=== PATIENT | female | born 1980 | race Caucasian/White ===

== ENCOUNTER 2018-01-11 08:26 | Inpatient (IN) | payer OTHER ==
[~2018-01-11] VITALS: Ht 165.1 cm; Wt 108.1 kg
[~2018-01-11 08:26] MED LIST: FENU610C PO; PRENCAP6 PO
[2018-01-11] MEDS ORDERED: PANT20TA2 PO (09:30)
[2018-01-11] MEDS ORDERED: CHLORHEXIDINE GLUCONATE 2 % 1 PACK (2 CLOTHS) TOPICAL PRN (09:30)
[2018-01-11] MEDS ORDERED: LACTATED RINGER'S 1000 ML IV PRN (09:30)
[2018-01-11] MEDS ORDERED: LISI10TA3 PO (09:30)
[2018-01-11] MEDS ORDERED: SODIUM CHLORID 0.9% 500 ML IV PRN (09:30)
[2018-01-11] MEDS ORDERED: POVIDONE IODINE 5% (ANTISEPSIS KIT) 4 APPLICATIONS EACH NARE PRN (09:30)
[2018-01-11] MEDS ORDERED: CETI10 (09:30)
[2018-01-11] MEDS ORDERED: METOPROLOL TARTRATE 25 MG TAB PO PRN (09:30)
[2018-01-11] MEDS ORDERED: metroNIDAZOLE 500 MG INJ 100 ML IV SCH (09:45)
[2018-01-11] MEDS ORDERED: ceFAZolin 2 GM PREMIX 50 ML IV SCH (09:45)
[2018-01-11] MEDS ORDERED: ONDANSETRON HCL 4 MG/2 ML VIAL IV PUSH SCH (09:45)
[2018-01-11] MEDS ORDERED: APREPITANT 40 MG CAP PO SCH (09:45)
[2018-01-11] MEDS ORDERED: ACETAMINOPHEN 1000 MG/100 ML 100 ML IV SCH (09:45)
[2018-01-11] MEDS ORDERED: DEXAMETHASONE SOD PHOS 4 MG/ML VIAL IV ONE (12:00)
[2018-01-11] MEDS ORDERED: ROCURONIUM INJ 50 MG/5 ML SYRINGE IV PUSH ONE (12:00)
[2018-01-11] MEDS ORDERED: NEOSTIGMINE 5 MG/5 ML SYRINGE IV PUSH ONE (12:00)
[2018-01-11] MEDS ORDERED: LACTATED RINGER'S 1000 ML INJ 1,000 ML IV ONE (12:00)
[2018-01-11] MEDS ORDERED: VECURONIUM BROMIDE 20 MG VIAL IV ONE (12:00)
[2018-01-11] MEDS ORDERED: GLYCOPYRROLATE 1 MG/5 ML SYRINGE IV PUSH ONE (12:00)
[2018-01-11] MEDS ORDERED: STERILE WATER FOR INJECTION 20 ML VIAL IV ONE (12:00)
[2018-01-11] MEDS ORDERED: LIDOCAINE HCL 1% PF 5 ML SYRINGE OTHER ONE (12:00)
[2018-01-11] MEDS ORDERED: ePHEDrine/NS 25 MG/5 ML SYRINGE IV ONE (12:00)
[2018-01-11] MEDS ORDERED: PROPOFOL 200 MG/20 ML AMP IV ONE (12:00)
[2018-01-11] MEDS ORDERED: ONDANSETRON HCL 4 MG/2 ML VIAL IV ONE (12:00)
[2018-01-11] MEDS ORDERED: BUPIVACAINE/EPINEPHRINE 0.25% PF 10 ML VIAL INFIL ONE (13:21)
[2018-01-11] MEDS: 1/2 NS + KCL 20 MEQ INJ 1,000 ML IV SCH ×2 (14:48→23:05)
[2018-01-11] MEDS ORDERED: Post-op Orders (for Pharmacy) OTHER ONE (14:50)
[2018-01-11] MEDS ORDERED: DO NOT ADM ANY ANTICOAGULANT DRUGS PRN (14:52)
[2018-01-11] MEDS ORDERED: MIDAZOLAM HCL 2 MG/2 ML VIAL ONE (14:56)
[2018-01-11] MEDS ORDERED: MORPHINE SULFATE 4 MG/ML INJ ONE (14:56)
[2018-01-11] MEDS ORDERED: ENALAPRILAT 1.25 MG/ML VIAL IV PUSH PRN (15:00)
[2018-01-11] MEDS ORDERED: MORPHINE SULFATE 30 MG/30 ML PCA IV SCH (15:00)
[2018-01-11] MEDS ORDERED: ACETAMINOPHEN 325MG/HYDROcodone 7.5MG/15ML UDC PO PRN ×2 (15:00)
[2018-01-11] MEDS ORDERED: diphenhydrAMINE HCL ELIXIR 12.5 MG/5 ML CUP PO PRN (15:00)
[2018-01-11] MEDS ORDERED: diphenhydrAMINE HCL 50 MG/ML VIAL IV PUSH PRN (15:00)
[2018-01-11] MEDS ORDERED: ONDANSETRON HCL 4 MG/2 ML VIAL IV PUSH PRN (15:00)
[2018-01-11] MEDS ORDERED: SODIUM CHLORIDE 0.9% FLUSH 10 ML FLUSH IV FLUSH PRN (15:00)
[2018-01-11] MEDS ORDERED: NALOXONE HCL 0.4 MG/ML AMP IV PUSH PRN (15:00)
[2018-01-11] MEDS: METOCLOPRAMIDE HCL 10 MG/2 ML VIAL IV PUSH SCH ×2 (16:15→21:58)
[2018-01-11] MEDS: ACETAMINOPHEN 1000 MG/100 ML 100 ML IV SCH ×2 (18:20→23:11)
[2018-01-11] MEDS ORDERED: ENOXAPARIN SODIUM 40 MG/0.4 ML SYRINGE SQ SCH (19:00)
[2018-01-11 20:00] VITALS: BP 141/81; PULSE 67; RESP 18; TEMP 97.1; O2SAT 97
[2018-01-11] MEDS: SODIUM CHLORIDE 0.9% FLUSH 10 ML FLUSH IV FLUSH SCH (21:00)
[2018-01-11] MEDS: metroNIDAZOLE 500 MG INJ 100 ML IV SCH (21:54)
[2018-01-11] MEDS: PCA - TOTAL MG MORPHINE DELIVERED PER SHIFT SCH (22:00)
[2018-01-12] VITALS: BP 126/72; PULSE 77; RESP 18; TEMP 97.6; O2SAT 99
[2018-01-12] MEDS: RESP: ALBUTEROL 2.5 MG/3 ML NEB (SCH) INH ×5 (02:41→16:00)
[2018-01-12] MEDS: metroNIDAZOLE 500 MG INJ 100 ML IV SCH ×2 (03:35→12:02)
[2018-01-12] MEDS: METOCLOPRAMIDE HCL 10 MG/2 ML VIAL IV PUSH SCH ×2 (03:36→10:10)
[2018-01-12] MEDS: ACETAMINOPHEN 1000 MG/100 ML 100 ML IV SCH ×2 (04:33→12:03)
[2018-01-12] MEDS: PCA - TOTAL MG MORPHINE DELIVERED PER SHIFT SCH (06:00)
[2018-01-12] MEDS: 1/2 NS + KCL 20 MEQ INJ 1,000 ML IV SCH ×2 (06:13→12:03)
[2018-01-12] MEDS: SODIUM CHLORIDE 0.9% FLUSH 10 ML FLUSH IV FLUSH SCH (07:16)
[2018-01-12 08:00] VITALS: BP 135/61; PULSE 87; RESP 15; TEMP 97.5; O2SAT 99
[2018-01-12] MEDS ORDERED: LISINOPRIL 10 MG TAB PO SCH (09:00)
[2018-01-12] MEDS ORDERED: PANTOPRAZOLE SOD 40 MG DELAYED RELEASE TAB PO SCH (09:00)
[2018-01-12 09:30] VITALS: O2SAT 99
[2018-01-12 10:14] LABS: AUTOMATED NEUTROPHIL # 8.3 TH/MM3 (1.8-7.7); BASOPHIL % 0.2 % (0.0-2.0); EOSINOPHIL # 0.1 TH/MM3 (0-0.4); EOSINOPHIL % 0.5 % (0.0-4.0); HEMATOCRIT 36.8 % (35.0-46.0); LYMPH % 17.1 % (9.0-44.0); LYMPHOCYTE # 1.9 TH/MM3 (1.0-4.8); MEAN CELL VOLUME 78.5 FL (80.0-100.0); MEAN CORPUSCULAR HEMOGLOBIN 25.5 PG (27.0-34.0); MEAN CORPUSCULAR HGB CONC 32.5 % (32.0-36.0); MEAN PLATELET VOLUME 8.4 FL (7.0-11.0); MONO % 6.5 % (0.0-8.0); MONOCYTE # 0.7 TH/MM3 (0-0.9); NEUT % 75.7 % (16.0-70.0); PLATELET COUNT 319 TH/MM3 (150-450); RED BLOOD COUNT 4.69 MIL/MM3 (4.00-5.30); RED CELL DISTRIBUTION WIDTH 15.7 % (11.6-17.2)
[2018-01-12 10:39] LABS: BICARBONATE 22.7 MEQ/L (21.0-32.0); CALCIUM 8.2 MG/DL (8.5-10.1); CREATININE 0.62 MG/DL (0.50-1.00); MAGNESIUM 2.2 MG/DL (1.5-2.5)
[2018-01-12 12:00] VITALS: BP 127/82; PULSE 71; RESP 15; TEMP 97.8; O2SAT 96
--- NOTE | 2018-01-12 12:33 | HHI.PR ---
Subjective Subjective Notes Pain well controlled No GI complaints Tolerating clears Objective Vitals/I&O Vital Signs Date Time Temp Pulse Resp B/P (MAP) Pulse Ox O2 Delivery O2 Flow Rate FiO2 01/12/18 08:00 97.5 87 15 135/61 (85) 99 01/11/18 16:40 Room Air 01/11/18 15:00 2 Labs Laboratory Tests Test 01/12/18 09:16 White Blood Count 11.0 Red Blood Count 4.69 Hemoglobin 12.0 Hematocrit 36.8 Mean Corpuscular Volume 78.5 Mean Corpuscular Hemoglobin 25.5 Mean Corpuscular Hemoglobin Concent 32.5 Red Cell Distribution Width 15.7 Platelet Count 319 Mean Platelet Volume 8.4 Neutrophils (%) (Auto) 75.7 Lymphocytes (%) (Auto) 17.1 Monocytes (%) (Auto) 6.5 Eosinophils (%) (Auto) 0.5 Basophils (%) (Auto) 0.2 Neutrophils # (Auto) 8.3 Lymphocytes # (Auto) 1.9 Monocytes # (Auto) 0.7 Eosinophils # (Auto) 0.1 Basophils # (Auto) 0.0 CBC Comment DIFF FINAL Differential Comment Blood Urea Nitrogen 9 Creatinine 0.62 Random Glucose 88 Calcium Level 8.2 Magnesium Level 2.2 Sodium Level 139 Potassium Level 3.7 Chloride Level 106 Carbon Dioxide Level 22.7 Anion Gap 10 Estimat Glomerular Filtration Rate 107 Cardiovascular: Regular Lungs: Clear Abdomen: Post-op tenderness Extremities: Perfused Wound Wound : Wound Location: Abdomen Appearance: Clean & Dry A/P Assessment and Plan 37yo F POD#1 laparoscopic RNY -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
[2018-01-12] MEDS ORDERED: PANT40TA3 PO (12:34)
[2018-01-12 16:00] VITALS: BP 140/66; PULSE 80; RESP 16; TEMP 97.7; O2SAT 97
[2018-01-12] MEDS ORDERED: METOCLOPRAMIDE HCL 10 MG/2 ML VIAL IV PUSH PRN (16:00)
[2018-01-12] MEDS ORDERED: BENZOCAINE-MENTHOL (SUGAR FREE) 15 MG-3.6 MG LOZENGE BUCCAL ONE (16:30)
[2018-01-12] MEDS ORDERED: CETIRIZINE HCL 10 MG TAB PO SCH (21:00)
--- NOTE | 2018-01-16 11:12 | MP ---
cc: Stanislav Daley MD DATE OF OPERATION: DATE OF OPERATION: 01/11/2018. PREOPERATIVE DIAGNOSIS: Morbid obesity with a BMI of 40, complicated by essential hypertension. POSTOPERATIVE DIAGNOSIS: Morbid obesity with a body mass index of 40, complicated by essential hypertension. PROCEDURE PERFORMED: Laparoscopic Gogo-en-Y gastric bypass, 100 cm Gogo limb, antegastric, antecolic. SURGEON: Stanislav Daley MD SALESPERSON SHOES: John Lara MD ANESTHESIA: General endotracheal anesthesia. ESTIMATED BLOOD LOSS: Scant. FINDINGS: Fatty liver. SPECIMENS: None. COMPLICATIONS: None. OPERATIVE PROCEDURE: The patient was given prophylactic antibiotic in pre-op holding. She was taken to the operating room and placed on the operating table in supine position. Bilateral sequential inflation devices were placed on the lower extremities. General anesthesia was instituted. A Blair catheter was placed. The abdomen was prepped and draped in a sterile fashion. The supraumbilical region was anesthetized with 0.5% Marcaine with epinephrine approximately three fingerbreadths above the umbilicus. A skin incision was made to the left of the umbilicus. A 12 mm Optiview port was placed under direct vision. A pneumoperitoneum was created. Under direct vision one 5 mm right upper quadrant port, one 12 mm right upper quadrant port, as well as one 12 mm left upper quadrant and two 5 mm left upper quadrant ports were placed. Prior to placement of all ports the skin and peritoneum was anesthetized with 0.5% Marcaine with epinephrine. The patient was placed in reverse Trendelenburg position. A Cinthia-Flex retractor was placed and the liver was retracted. The gastroesophageal junction was identified. The angle of His was taken down. The lesser sac was entered on the lesser curvature approximately 5 cm distal to the gastroesophageal junction. The stomach was divided in this region with an Endo RENEE 3.5 mm load. A gastric pouch was created angled towards the angle of His using an additional three firings of the Endo RENEE 3.5 mm load. A 30-40 mL pouch was created. The staple line of the gastric remnant was covered with omentum. Attention was then focused on the gastrocolic ligament, and this was opened widely using the Harmonic scalpel. The transverse mesocolon was identified and was opened using the Harmonic scalpel creating a Y-defect. The ligament of Treitz was identified and brought into view. A point 50 cm distal to the ligament of Treitz was identified and the small bowel was transected in this region. The distal segment was run for a distance of 100 cm. At this point using the biliopancreatic limb an enterostomy was created with an Endo RENEE vascular load. This defect was closed with 2-0 Vicryl running in two layers. The proximal staple line was then brought up into the upper abdomen. An enterotomy was created. A gastrotomy was created. A gastrojejunostomy was created with an Endo RENEE 3.5 mm load creating a stoma of approximately 2 cm. This defect was closed in two layers using 2-0 Vicryl. Prior to placement of the second wave the anastomosis was tested with methylene blue. There was leakage of methylene blue along the suture lines; this was reinforced with a second wave of running 2-0 Vicryl with no further leak. Tisseel was then placed over the anastomosis. A 10 mm flat Earnest-Laboy drain was then placed posterior to the gastrojejunal anastomosis as well as the jejunostomy. The upper abdomen was irrigated with saline. The liver retractor was then removed. The pneumoperitoneum was released. All ports were removed. The TANA was secured to the abdominal wall using 2-0 silk. All skin incisions were closed with 4-0 PDS. The abdomen was cleaned. A sterile dressing was placed. The patient was awakened and taken to the recovery room stable. MD DORIAN Santacruz/MARILU , 10:14 AM , 11:11 AM
== END 2018-01-12 17:15 | disposition home or self-care (01) | DRG 621 ==
LOC: HSDC 08:26 → EDSTATUS 12:00 → HSDI 14:51 → N07B 16:55
PROVIDERS: ADMIT Surgery; ATTEND Surgery
PROC: 0D164ZA Bypass Stomach to Jejunum, Percutaneous Endoscopic Approach (ICD-10-PCS; principal; 2018-01-11 12:29)
DX: E66.01 Morbid (severe) obesity due to excess calories (principal); K76.0 Fatty (change of) liver, not elsewhere classified; I10 Essential (primary) hypertension; E78.5 Hyperlipidemia, unspecified; Z68.41 Body mass index [BMI] 40.0-44.9, adult
CPT/HCPCS: 80048; 83735; 85025; 94150; J0131; J0690; J1100; J2250; J2270; J2405; J2710; J2765; J3010; J7120; J8501